=== PATIENT | female | born 1990 | race Caucasian/White ===

== ENCOUNTER 2016-10-22 19:18 | Emergency (ER) | payer BC ==
[~2016-10-22] VITALS: Ht 160 cm; Wt 117.9 kg
[~2016-10-22 19:18] MED LIST: VICODIN 5/500 T1 TAB PO; VOLTAREN75 MG PO
[2016-10-22] MEDS ORDERED: LEXAPRO 20 MG T20 MG PO (19:35)
--- NOTE | 2016-10-22 20:06 | Emergency Room Report ---
History of Present Illness Time Seen by 1934 Presenting Problem in Triage Pt arrived:Walked Presenting Problem:c/o abdominal cramping for 2 weeks. Positive test x 3 this weekend. Sent per swing driver for testing. Has been taking cats claw and concerned about possibilty of miscarriage Onset of symptoms date/time:/ or onset unknown for:MEDICAL HX UNKNOWN Treatment Prior to Arrival: VETERINARY MANAGER Provided by: Sepsis Risk Assessment: Temp: 98.6 B/P: 164/90 MAP: 114 Pulse: 96 Resp: 20 Recent fever? N Clinical Suspician of Infection? N Mental Status: 1 - Regular (Normal Baseline) Sepsis Risk:Possible Sepsis Risk Have you (or family members/close friends) recently traveled outside the [place]? N If Yes, where/when: Have you had exposure to infectious disease within the past month? N TB? Other? Specify: Patient states LMP was end of August, and has had three pos home tests. Her breasts are tender, and she is gaining weight. She is taking an herbal preparation called cat's claw for her thyroid symptoms, per her SERVER DEVELOPER. She reports cramping and right sided pelvic pain x several weeks, w/o any vaginal bleeding, discharge, urinary sx, diarrhea, or constipation. No fever or vomiting. No prior pregnancies. ALLERGIES Coded Allergies: Sulfa (Sulfonamide Antibiotics) (10/22/16) cefixime (From SUPRAX) (10/22/16) Home Medications Reported Medications Escitalopram Oxalate (Lexapro 20MG) 20 MG PO DAILY (Bill THOMAS, Jluia Goodwin) History Medical History General CAD? No Angina: No [place]: No Hypertension? No Hyperlipidemia? No CHF? No DVT? No PE? No COPD? No Asthma? No Anemia? No GERD? Yes Gastric ulcers? No GI Bleed? No Hernia? No Thyroid Problems? Yes Hypothyroidism? Yes CVA? No Seizures? No Diabetes? No Renal Insuffiency? No End Stage Renal Disease? No UTI? No Stones? No BPH? No GB Disease: No Nephritic Syndrome? No Asplenia? No Hepatitis? No Sickle Cell Disease? No Arthritis? No Migraines? No Cataracts? No Glaucoma? No MRSA? No HIV? No TB? No Anxiety? No Depression? No Cancer? No More? 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 (Bill THOMAS, Julia Goodwin) Physical Exam Vital Signs Vital Signs Date Time Temp Pulse Resp B/P Pulse O2 O2 Flow FiO2 Ox Delivery Rate 10/23 1923 98.6 96 20 164/90 100 General Appearance normal appearance, WD/WN, no apparent distress Eye Exam - bilateral eye normal exam, bilateral eye PERRL Neck normal inspection, non-tender, supple, full range of motion Respiratory Status Yes: trachea midline, chest symmetrical, non tender chest. No: respiratory distress, tender on palpation, use of accessory muscles, pain on inspiration, pain on expiration, productive cough, non productive cough. Lung Sounds bilateral: normal breath sounds, lungs clear. Cardiovascular normal exam, regular rate/rhythm, no peripheral edema, no gallop, no JVD, no murmur, no rub, normal peripheral pulses Gastrointestinal normal bowel sounds, normal exam, non tender, soft, no organomegaly, no pulsatile mass, no guarding, no rebound Extremities non-tender, normal range of motion, normal inspection, no calf tenderness, no pedal edema Strength 5 Upper Ext (L), 5 Upper Ext (R), 5 Lower Ext (L), 5 Lower Ext (R) Pelvic normal external exam, normal internal exam, normal adnexa, no cerv. motion tender, no masses, cervix closed, thick and high, no lesions, no bleeding , no CMT, adnexa nontender with no masses, uterus firm and midline, nontender. Scant mucoid d/c Nurse present during exam? Yes Neurologic alert, normal exam, no motor/sensory deficits, oriented x 3 (Bill THOMAS, Julia Goodwin) Medical Decision Making LABS/Meds/Orders Pt receiving controlled substance in ED? No Results/Orders Laboratory Tests 10/22/162004: Sodium 137, Potassium 3.9, Chloride 103, Carbon Dioxide 25, BUN 15, Creatinine 0.9, Estimated Creat Clear 178, Estimated GFR (MDRD) 76, Glucose 94, Calcium 8.9 , Total Bilirubin 0.2, AST 12 L, ALT 22, Alkaline Phosphatase 86, Total Protein 7.7, Albumin 3.6, Globulin 4.1 H, Albumin/Globulin Ratio 0.9 L, Beta HCG, Quant 83335.6, WBC 10.1, RBC 4.53, Hgb 12.9, Hct 38.3, MCV 84.4, RDW 13.7, Plt Count 305, MPV 8.0, Gran % 59.0, Gran # 6.0, Lymphocytes % 31.0, Monocytes % 5.7 , Eosinophils % 4.0, Basophils % 0.4, Lymphocytes # 3.1, Monocytes # 0.6, Eosinophils # 0.4, Basophils # 0.0, PUBS MCHC 33.7, MCH 28.5, Miscellaneous Test POSITIVE 10/22/161939: Ur Chlamydia DNA (PCR) Pending, Urine GC DNA Probe Pending 10/22/161939: Ur Chlamydia DNA (PCR) Pending, Urine GC DNA Probe Pending Current Medication Orders Sig/Liana Start time Last Medication Dose Route Stop Time Status Admin Sodium Chloride 10 ML PRN PRN 10/22 1944 AC IV 10/24 1935 Orders Procedure Date/time Status US TRANSVAGINAL PREG 10/23 1951 Active CHL/GC URINE 10/23 1939 Active IV SALINE LOCK 10/22 1937 Active WET PREP 10/22 1937 Complete LUMA PREP 10/22 1937 Complete RH BLOOD TYPE 10/22 1937 Complete URINE 10/22 1937 Complete CBC WITH AUTO DIFF 10/22 1937 Complete CHEM 12 PROFILE 10/22 1937 Complete BETA-HCG, QUANT 10/22 1937 Complete Progress ED Progress Notes Date 10/22/16 Time 2002 Comment Transfer of care to Dr. Acharya at 2000 with labs and US pending, pelvic complete with LUMA and WP swabs obtained and sent to lab. (Bill THOMAS, Julia Goodwin) XRAY/CT/US XRAY/CT/US Ultrasound pelvis US Interpretation by discussed w/radiologist US results normal (see report) (Marck THOMAS,Elpidio Boone) Departure Departure Time of Disposition 2002 Disposition Still a Patient Condition STABLE Referrals Valerie Wagner (Family) ED Critical Care Critical Care No (Julia Khan MD) Departure Clinical Impression Primary Impression: Pelvic pain Secondary Impressions: Qualifiers: Weeks of gestation: less than 8 weeks Qualified Code: Z3A.01 - Less than 8 weeks gestation of Patient Instructions DI for Abdominal Pain -- Early Additional Instructions call ob in am for follow up Discharge Counseling Counseled pt/family regarding diagnosis, test results, follow up needs (Elpidio Acharya MD) at 2005 at 2115
--- NOTE | 2016-10-22 20:06 | Emergency Room Report ---
History of Present Illness Time Seen by 1934 Presenting Problem in Triage Pt arrived:Walked Presenting Problem:c/o abdominal cramping for 2 weeks. Positive test x 3 this weekend. Sent per free lance model for testing. 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 N Clinical Suspician of Infection? N Mental Status: 1 - Regular (Normal Baseline) Sepsis Risk:Possible Sepsis Risk Have you (or family members/close friends) recently traveled outside the [place]? N If Yes, where/when: Have you had exposure to infectious disease within the past month? N TB? Other? Specify: Patient states LMP was end of August, and has had three pos home tests. Her breasts are tender, and she is gaining weight. 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 She reports cramping and right sided pelvic pain x several weeks, w/o any vaginal bleeding, discharge, urinary sx, diarrhea, or constipation. No fever or vomiting. No prior pregnancies. ALLERGIES Coded Allergies: Sulfa (Sulfonamide Antibiotics) (10/22/16) cefixime (From SUPRAX) (10/22/16) Home Medications Reported Medications Escitalopram Oxalate (Lexapro 20MG) 20 MG PO DAILY (Bill THOMAS, Julia Goodwin) History Medical History General CAD? No Angina: No [place]: No Hypertension? No Hyperlipidemia? No CHF? No DVT? No PE? No COPD? No Asthma? No Anemia? No GERD? Yes Gastric ulcers? No GI Bleed? No Hernia? No Thyroid Problems? Yes Hypothyroidism? Yes CVA? No Seizures? No Diabetes? No Renal Insuffiency? No End Stage Renal Disease? No UTI? No Stones? No BPH? No GB Disease: No Nephritic Syndrome? No Asplenia? No Hepatitis? No Sickle Cell Disease? No Arthritis? No Migraines? No Cataracts? No Glaucoma? No MRSA? No HIV? No TB? No Anxiety? No Depression? No Cancer? No More? 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 (Bill THOMAS, Julia Goodwin) Physical Exam Vital Signs Vital Signs Date Time Temp Pulse Resp B/P Pulse O2 O2 Flow FiO2 Ox Delivery Rate 10/23 1923 98.6 96 20 164/90 100 General Appearance normal appearance, WD/WN, no apparent distress Eye Exam - bilateral eye normal exam, bilateral eye PERRL Neck normal inspection, non-tender, supple, full range of motion Respiratory Status Yes: trachea midline, chest symmetrical, non tender chest. No: respiratory distress, tender on palpation, use of accessory muscles, pain on inspiration, pain on expiration, productive cough, non productive cough. Lung Sounds bilateral: normal breath sounds, lungs clear. Cardiovascular normal exam, regular rate/rhythm, no peripheral edema, no gallop, no JVD, no murmur, no rub, normal peripheral pulses Gastrointestinal normal bowel sounds, normal exam, non tender, soft, no organomegaly, no pulsatile mass, no guarding, no rebound Extremities non-tender, normal range of motion, normal inspection, no calf tenderness, no pedal edema Strength 5 Upper Ext (L), 5 Upper Ext (R), 5 Lower Ext (L), 5 Lower Ext (R) Pelvic normal external exam, normal internal exam, normal adnexa, no cerv. motion tender, no masses, cervix closed, thick and high, no lesions, no bleeding , no CMT, adnexa nontender with no masses, uterus firm and midline, nontender. Scant mucoid d/c Nurse present during exam? Yes Neurologic alert, normal exam, no motor/sensory deficits, oriented x 3 (Bill THOMAS, Julia Goodwin) Medical Decision Making LABS/Meds/Orders Pt receiving controlled substance in ED? No Results/Orders Laboratory Tests 10/22/162004: Sodium 137, Potassium 3.9, Chloride 103, Carbon Dioxide 25, BUN 15, Creatinine 0.9, Estimated Creat Clear 178, Estimated GFR (MDRD) 76, Glucose 94, Calcium 8.9 , Total Bilirubin 0.2, AST 12 L, ALT 22, Alkaline Phosphatase 86, Total Protein 7.7, Albumin 3.6, Globulin 4.1 H, Albumin/Globulin Ratio 0.9 L, Beta HCG, Quant 05193.6, WBC 10.1, RBC 4.53, Hgb 12.9, Hct 38.3, MCV 84.4, RDW 13.7, Plt Count 305, MPV 8.0, Gran % 59.0, Gran # 6.0, Lymphocytes % 31.0, Monocytes % 5.7 , Eosinophils % 4.0, Basophils % 0.4, Lymphocytes # 3.1, Monocytes # 0.6, Eosinophils # 0.4, Basophils # 0.0, PUBS MCHC 33.7, MCH 28.5, Miscellaneous Test POSITIVE 10/22/161939: Ur Chlamydia DNA (PCR) Pending, Urine GC DNA Probe Pending 10/22/161939: Ur Chlamydia DNA (PCR) Pending, Urine GC DNA Probe Pending Current Medication Orders Sig/Liana Start time Last Medication Dose Route Stop Time Status Admin Sodium Chloride 10 ML PRN PRN 10/22 1944 AC IV 10/24 1935 Orders Procedure Date/time Status US TRANSVAGINAL PREG 10/23 1951 Active CHL/GC URINE 10/23 1939 Active IV SALINE LOCK 10/22 1937 Active WET PREP 10/22 1937 Complete LUMA PREP 10/22 1937 Complete RH BLOOD TYPE 10/22 1937 Complete URINE 10/22 1937 Complete CBC WITH AUTO DIFF 10/22 1937 Complete CHEM 12 PROFILE 10/22 1937 Complete BETA-HCG, QUANT 10/22 1937 Complete Progress ED Progress Notes Date 10/22/16 Time 2002 Comment Transfer of care to Dr. Acharya at 2000 with labs and US pending, pelvic complete with LUMA and WP swabs obtained and sent to lab. (Bill THOMAS, Julia Goodwin) XRAY/CT/US XRAY/CT/US Ultrasound pelvis US Interpretation by discussed w/radiologist US results normal (see report) (Marck THOMAS,Elpidio Boone) Departure Departure Time of Disposition 2002 Disposition Still a Patient Condition STABLE Referrals Valerie Wagner (Family) ED Critical Care Critical Care No (Julia Khan MD) Departure Clinical Impression Primary Impression: Pelvic pain Secondary Impressions: Qualifiers: Weeks of gestation: less than 8 weeks Qualified Code: Z3A.01 - Less than 8 weeks gestation of Patient Instructions DI for Abdominal Pain -- Early Additional Instructions call ob in am for follow up Discharge Counseling Counseled pt/family regarding diagnosis, test results, follow up needs (Elpidio Acharya MD) at 2005 at 2115
[2016-10-22 20:12] LABS: HEMOGLOBIN 12.9 g/dL (12.2-16.2); LYMPH # 3.1 K/mm3 (0.7-4.5)
[2016-10-22 21:31] VITALS: BP 159/90
--- NOTE | 2016-10-23 06:54 | RADIOLOGY REPORT PS360 ---
US TRANSVAGINAL PREG HISTORY: Pelvic pain, positive test pelvic pain ORDERING PHYSICIAN: Elpidio Acharya MD PATIENT AGE: 26 years COMPARISON: None FINDINGS: There are 2 intrauterine gestational sacs present. Yolk sacs are identified in both of the gestational sacs. There does appear to be bilateral pole. The gestational sac on the right as a crown-rump length of 0.83 cm correlating to gestational age of 6 weeks 6 days. What appears to be pole on the left has a crown-rump length of 0.87 cm with an estimated age of 6 weeks 6 days. heart tones are however not definitely identified. Follow-up ultrasound recommended to confirm viability. The adnexa are unremarkable. IMPRESSION: Twin gestation with 2 gestational sacs and 2 yolk sac. What appears to represent pole is noted measuring approximate 6 weeks 6 days. heart tones not readily apparent. May be too early to detect heart tones. Follow-up ultrasound recommended to confirm viability.
[2016-10-26 03:36] LABS: Neisseria gonorrhoeae, NAA Negative (Negative)
== END 2016-10-22 21:32 | disposition still patient (30) ==
LOC: ER 19:18
PROVIDERS: Emergency Medicine
DX: O26.891 Other specified pregnancy related conditions, first trimester (principal); R10.2 Pelvic and perineal pain; Z3A.01 Less than 8 weeks gestation of pregnancy